=== PATIENT | male | born 1985 | race Hispanic/Latino ===

== ENCOUNTER 2019-09-03 05:12 | Emergency (ER) | payer OTHER | END 2019-09-03 05:40 | LOC: EDH 05:12 | DX: R79.89 Other specified abnormal findings of blood chemistry (principal) | CPT/HCPCS: 36415 ==

== ENCOUNTER 2022-11-23 17:08 | Emergency (ER) | payer OTHER ==
[~2022-11-23] VITALS: Ht 162.6 cm; Wt 73.5 kg
[2022-11-23 19:55] VITALS: BP 131/80
[2022-11-23] MEDS ORDERED: KETOROLAC 60 MG VIAL (30MG/ML) IM ONE ×2 (20:23→20:30)
[2022-11-23] MEDS ORDERED: CEPH500C2 PO (20:39)
[2022-11-23] MEDS ORDERED: IBUP-2070 PO (20:39)
== END 2022-11-23 20:47 | disposition home or self-care (01) ==
LOC: EDH 17:08
DX: S61.411A Laceration without foreign body of right hand, initial encounter (principal); F17.210 Nicotine dependence, cigarettes, uncomplicated; W25.XXXA Contact with sharp glass, initial encounter; Y93.89 Activity, other specified; Y92.89 Other specified places as the place of occurrence of the external cause; Y99.0 Civilian activity done for income or pay
CPT/HCPCS: 99283; 73130; 96372; J1885

== ENCOUNTER 2024-08-09 21:57 | Emergency (ER) | payer BC, OTHER ==
[~2024-08-09] VITALS: Ht 162.6 cm; Wt 74.8 kg
[~2024-08-09 21:57] MED LIST: CEPH500C2 PO; IBUP-2070 PO
[2024-08-09 22:23] LABS: BASOPHILS # (AUTO) 0.03 K/uL (0.00-0.20); BASOPHILS % (AUTO) 0.4 % (0.0-5.0); EOSINOPHILS # (AUTO) 0.36 K/uL (0.00-0.70); EOSINOPHILS % (AUTO) 4.7 % (0.0-8.0); HEMATOCRIT 41.3 % (42-54); IMMATURE GRANULOCYTE ABSOLUTE 0.02 K/uL (0-1); LYMPHOCYTES # (AUTO) 1.9 K/uL (1.0-4.8); MEAN CORPUSCULAR HEMOGLOBIN 31.4 pg (27.0-33.0); MEAN CORPUSCULAR HGB CONC 33.9 g/dL (32.0-36.0); MEAN CORPUSCULAR VOLUME 92.6 fL (79-99); MONOCYTES # (AUTO) 0.7 K/uL (0.1-1.0); MONOCYTES % (AUTO) 9.6 % (3.0-13.0); NEUTROPHILS # (AUTO) 4.7 K/uL (1.8-7.7); PLATELET COUNT (AUTO) 318 K/uL (130-400); RED BLOOD CELL COUNT(AUTO) 4.46 MIL/uL (4.50-6.20); WHITE BLOOD COUNT (AUTO) 7.7 K/uL (4.8-10.8)
[2024-08-09 22:28] LABS: APPEARANCE,URINE CLEAR (CLEAR); BILIRUBIN,URINE NEGATIVE (NEGATIVE); COLOR,URINE LIGHT-YELLOW (YELLOW); GLUCOSE, URINE (UA) NEGATIVE (NEGATIVE); KETONES,URINE NEGATIVE (NEGATIVE); LEUKOCYTE ESTERASE ,URINE NEGATIVE Leu/uL (NEGATIVE); NITRATE,URINE NEGATIVE (NEGATIVE); OCCULT BLOOD,URINE NEGATIVE (NEGATIVE); PH,URINE 6.5 (5.0-8.0); PROTEIN,URINE 10 mg/dL (NEGATIVE)
[2024-08-09 22:29] LABS: CREATININE 1.1 mg/dL (0.5-1.3); POTASSIUM 3.3 mmol/L (3.5-5.1)
[2024-08-09] MEDS: PANTOPrazole 40 MG/VIAL IVP ONE (22:31)
--- NOTE | 2024-08-09 22:31 | ERN ---
ED Note History of Present Illness Stated Complaint: RUQ ABD PAIN Chief Complaint: Abdominal Pain Time Seen by MD: 22:02 Dictation: Patient is a 38-year-old male who presented to the ER complaining of right upper quadrant abdominal discomfort and heartburn, states that pain started yesterday and is associated with meals, patient also mentioned that he drinks alcohol every day, states that today the pain got worse after eating some spicy food. Otherwise patient denies fever, chills, diarrhea. Allergies: Coded Allergies: No Known Drug Allergies (Unverified Allergy, Unknown, 09/03/19) Home Meds Active Scripts Pantoprazole Sodium (Pantoprazole Sodium) 40 Mg Tablet.dr, 40 MG PO BID, #30 TAB Prov:NAKUL RODRIGUES MD 08/09/24 Ibuprofen (Ibuprofen) 600 Mg Tablet, 600 MG PO Q6H PRN for PAIN, #15 TAB Prov:JOSE MARTIN AGUILAR 11/23/22 Cephalexin (Cephalexin) 500 Mg Capsule, 500 MG PO TID for 10 Days, #30 CAP Prov:JOSE MARTIN AGUILAR 11/23/22 Past Medical History Past Medical History: Asthma, Other Additional Past Medical Hx: H. PYLORI Surgical History: None Review of System Dictation NEGATIVE EXCEPT PER HPI Constitutional: Negative for fever,chills, and weight loss Eyes: Negative for injury, pain,redness, and discharge ENT: Negative for injury,pain or swelling Cardiovascular: denies chest pain, palpitations, and edema Respiratory: Negative for shortness of breath, cough, and wheezing, Abdomen/GI: Abdominal pain, heartburn Back: Negative for injury and pain : Negative for injury, bleeding and discharge MS/Extremity: Negative for injury and deformity Skin: Negative for rash, and discoloration Neuro: Negative for headache, weakness, numbness, tingling, and seizure Psych: Negative for suicide ideation, homicidal ideation, and hallucinations Initial Vital Sign VS Vital Signs Date Time Temp Pulse Resp B/P (MAP) Pulse Ox O2 Delivery O2 Flow Rate FiO2 08/09/24 21:58 98.8 74 18 167/108 99 Room Air 0 08/09/24 22:00 21 Physical Exam Dictation General: awake, alert, NAD Head/Face: Normocephalic, atraumatic Eyes: PERRL, EOMI, vision at baseline ENT: oral cavity clear, TMs clear, no signs of infection Neck: Trachea midline, supple, no nuchal rigidity Cardiovascular: RRR, normal S1/S2, No MRGs, no JVD Respiratory: CTAB, no respiratory distress, No rales or wheezes Abdomen: Soft , right upper quadrant tenderness Skin: Warm, dry, normal turgor, no rash MS/Extremity: Pulses equal, no cyanosis, neurovascular intact, FROM Neuro: COAx4, GCS 15, strength 5/5, CN 2-12 intact, normal cerebellar exam, nor mal gait, Psych: Normal behavior, mood, and affect normal Results (Laboratory/Radiology) Laboratory/Radiology Laboratory Tests Test 08/09/24 22:02 08/09/24 22:14 Urine Color LIGHT-YELLOW (YELLOW) Urine Appearance CLEAR (CLEAR) Urine pH 6.5 (5.0-8.0) Urine Specific [place] 1.029 (1.001-1.031) Urine Protein 10 mg/dL (NEGATIVE) H Urine Glucose (UA) NEGATIVE mg/dL (NEGATIVE) Urine Ketones NEGATIVE mg/dL (NEGATIVE) Urine Occult Blood NEGATIVE (NEGATIVE) Urine Nitrate NEGATIVE (NEGATIVE) Urine Bilirubin NEGATIVE mg/dL (NEGATIVE) Urine Urobilinogen 4.0 mg/dL (0.2-1.0) H Urine Leukocyte Esterase NEGATIVE Maryam/uL Urine RBC 2-5 /HPF (0-1) H Urine WBC None /HPF (0-1) Urine Bacteria None /HPF (None Seen) White Blood Count 7.7 K/uL (4.8-10.8) Red Blood Count 4.46 MIL/uL (4.50-6.20) L Hemoglobin 14.0 g/dL (14.0-18.0) Hematocrit 41.3 % (42-54) L Mean Corpuscular Volume 92.6 fL (79-99) Mean Corpuscular Hemoglobin 31.4 pg (27.0-33.0) Mean Corpuscular Hemoglobin Concent 33.9 g/dL (32.0-36.0) Red Cell Distribution Width 14.0 % (11.0-15.5) Platelet Count 318 K/uL (130-400) Mean Platelet Volume 9.5 fL (7.5-10.5) Immature Granulocyte % (Auto) 0.3 % (0-1) Neutrophils (%) (Auto) 60.0 % (40.0-77.0) Lymphocytes (%) (Auto) 25.0 % (21.0-51.0) Monocytes (%) (Auto) 9.6 % (3.0-13.0) Eosinophils (%) (Auto) 4.7 % (0.0-8.0) Basophils (%) (Auto) 0.4 % (0.0-5.0) Neutrophils # (Auto) 4.7 K/uL (1.8-7.7) Lymphocytes # (Auto) 1.9 K/uL (1.0-4.8) Monocytes # (Auto) 0.7 K/uL (0.1-1.0) Eosinophils # (Auto) 0.36 K/uL (0.00-0.70) Basophils # (Auto) 0.03 K/uL (0.00-0.20) Absolute Immature Granulocyte (auto 0.02 K/uL (0-1) Nucleated Red Blood Cells 0.0 % (0.0-0.19) Sodium Level 139 mmol/L (136-145) Potassium Level 3.3 mmol/L (3.5-5.1) L Chloride Level 102 mmol/L (101-111) Carbon Dioxide Level 32 mmol/L (21-32) Blood Urea Nitrogen 18 mg/dL (7-18) Creatinine 1.1 mg/dL (0.5-1.3) Glomerular Filtration Rate Calc 88 mL/min (>90) Random Glucose 102 mg/dL (70-105) Total Calcium 8.7 mg/dL (8.5-10.1) Total Bilirubin 1.1 mg/dL (0.2-1.0) H Aspartate Amino Transf (AST/SGOT) 30 U/L (10-37) Alanine Aminotransferase (ALT/SGPT) 53 U/L (12-78) Alkaline Phosphatase 81 U/L (50-136) Total Protein 7.6 g/dL (6.0-8.3) Albumin 3.8 g/dL (3.5-5.0) Amylase Level 63 U/L (25-115) Lipase 27 U/L (16-77) ED Course ED Course Orders Procedure Category Date Status Time Vital Signs Per CPOE 08/09/24 Transmitted Routine 22:02 Saline Lock Iv CPOE 08/09/24 Transmitted 22:02 Cbc With Differential LAB 08/09/24 Complete 22:02 Comprehensive LAB 08/09/24 Complete Metabolic Panel 22:02 Lipase LAB 08/09/24 Complete 22:02 Amylase LAB 08/09/24 Complete 22:02 Urinalysis Profile LAB 08/09/24 Complete 22:02 Us Abdominal Ruq\Ltd US 08/09/24 Taken 22:23 Pantoprazole 40mg Inj PHA 08/09/24 Complete (Protonix 40mg Inj 22:30 Mag/Alum/Simeth 30ml PHA 08/09/24 Complete (Maalox Plus 30ml) 22:30 Current Medications Medications (Trade) Dose Ordered Sig/Vadim Route PRN Reason Start Time Stop Time Status Last Admin Dose Admin Al Hydroxide/Mg Hydroxide (MAALox PLUS 30ML) 30 ml ONCE ONCE PO 08/09/24 22:30 08/09/24 22:31 DC 08/09/24 22:54 Pantoprazole Sodium (PROTonix 40MG INJ) 40 mg ONCE ONCE IVP 08/09/24 22:30 08/09/24 22:31 DC 08/09/24 22:31 Vital Signs Date Time Temp Pulse Resp B/P (MAP) Pulse Ox O2 Delivery O2 Flow Rate FiO2 08/09/24 23:00 98.8 81 18 152/70 99 Room Air* 0 21 08/09/24 22:00 81 18 138/91 97 Room Air* 0 21 08/09/24 21:58 98.8 74 18 167/108 99 Room Air 0 Medical Decision Making MDM 38-year-old male with abdominal pain, pain more localized in the right upper quadrant and heartburn Patient also drinks alcohol every day. Abdominal pain related to spicy food Gastritis Peptic ulcer Cholecystitis Ordered CMP, lipase, CBC Right upper quadrant ultrasound done preliminary results negative for cholecystitis. Ordered IV Protonix Ordered Maalox Laboratory reviewed, CMP within normal limits, liver enzymes within normal limits. Pending final result of abdominal ultrasound, patient agreed to follow up tomorrow at this facility for the results. Patient is feeling better, abdominal pain resolved. Likely his symptoms due to severe gastritis in the setting of been drink alcohol almost daily. He was advised to quit alcohol, decreasing intake of spicy foods and greasy foods. DX & DISP Disposition: Discharge Departure Impression: Primary Impression: Gastritis Additional Impressions: Peptic gastritis, Peptic reflux disease, Peptic ulcer, Abdominal pain Condition: Stable Scripts Pantoprazole Sodium (Pantoprazole Sodium) 40 Mg Tablet. 40 MG PO BID, #30 TAB Prov: NAKUL RODRIGUES MD 08/09/24 Additional Instructions: RETURN TO ER FOR ANY ACUTE OR WORSENING SYMPTOMS. FOLLOW-UP IN 1-2 DAYS WITH PRIMARY PROVIDER FOR RECHECK OF TODAY'S SYMPTOMS. Referrals: SELF,REFERRAL (PCP) NAKUL RODRIGUES MD Aug 09, 2024 22:31
[2024-08-09 22:32] LABS: ADD UA MICROSCOPIC YES
[2024-08-09 22:33] LABS: ALBUMIN 3.8 g/dL (3.5-5.0); BILIRUBIN,TOTAL 1.1 mg/dL (0.2-1.0); TOTAL PROTEIN, SERUM 7.6 g/dL (6.0-8.3)
[2024-08-09 22:38] LABS: MUCUS,URINE RARE LPF (None Seen)
[2024-08-09] MEDS: MAG/ALUM/SIMETH 30 ML UDCUP PO ONE (22:54)
[2024-08-09] MEDS ORDERED: PANT40TA54 PO (23:35)
[2024-08-10 00:15] VITALS: BP 151/72; PULSE 81; RESP 18; TEMP 98.8; O2SAT 99
--- NOTE | 2024-08-10 01:41 | HMCIMG ---
US ABDOMINAL RUQ\E\LTD HISTORY: Cholecystitis COMPARISON: None TECHNIQUE: Right upper quadrant abdominal ultrasound study was performed. FINDINGS: Liver measures 15.7 cm. Pancreas is not well seen due to overlying bowel gas. Fatty changes of the liver are noted. Liver is echogenic consistent with liver parenchymal disease. No gallstone is seen. Common duct measures 4 mm. No evidence of gallbladder wall thickening is seen. Right kidney measures 8.9 x 4.7 x 5.1 cm. No hydronephrosis is seen of the right kidney. IMPRESSION: 1. No gallstones or ductal dilatation is seen. 2. No hydronephrosis is seen.
== END 2024-08-10 00:16 | disposition home or self-care (01) ==
LOC: EDH 21:57
DX: K29.70 Gastritis, unspecified, without bleeding (principal); K21.9 Gastro-esophageal reflux disease without esophagitis; R10.11 Right upper quadrant pain; J45.909 Unspecified asthma, uncomplicated
CPT/HCPCS: 99284; 96374; 76705; 82150; 80053; 83690; 85025; 81001; 36415; J2470

== ENCOUNTER 2024-12-31 22:03 | Emergency (ER) | payer BC, OTHER ==
[~2024-12-31] VITALS: Ht 162.6 cm; Wt 74.8 kg
[~2024-12-31 22:03] MED LIST changes: +PANT40TA54 PO
--- NOTE | 2024-12-31 22:13 | NUR ---
PT CARE ASSUMED AT THIS TIME
[2024-12-31] MEDS: ketOROlac 30MG VIAL (30MG/ML) IM ONE (22:44)
[2024-12-31] MEDS: HYDROcodone/APAP 5/325 1 TAB TABLET PO ONE (22:46)
[2024-12-31] MEDS ORDERED: KETO10TA2 PO (22:56)
--- NOTE | 2024-12-31 22:58 | ERN ---
General Chief Complaint: FOOT INJURY/PAIN Stated Complaint: LEFT FOOT PAIN Time Seen by MD: 22:06 Time Seen by Midlevel: 22:06 Source: patient History of Present Illness Initial Comments The patient is a 39-year-old male with no significant past medical history presenting to the emergency department for evaluation of pain to his left foot. The patient states he works long hours and stands for a proximally 10-12 hours every day. He has been doing this for the last 12 years. He states this morning he felt fine but throughout the day he started having pain to the plantar aspect of the left lateral foot. Denies any direct injury. Patient was here requesting pain control. Denies any other symptoms at this time. Allergies: Coded Allergies: No Known Drug Allergies (Unverified Allergy, Unknown, 09/03/19) Home Meds Active Scripts Pantoprazole Sodium (Pantoprazole Sodium) 40 Mg Tablet.dr, 40 MG PO BID, #30 TAB Prov:NAKUL RODRIGUES MD 08/09/24 Ibuprofen (Ibuprofen) 600 Mg Tablet, 600 MG PO Q6H PRN for PAIN, #15 TAB Prov:JOSE MARTIN AGUILAR 11/23/22 Cephalexin (Cephalexin) 500 Mg Capsule, 500 MG PO TID for 10 Days, #30 CAP Prov:JOSE MARTIN AGUILAR 11/23/22 Past Medical History Past Medical History: Asthma, Other Medical History Other: H. PYLORI Past Surgical History: None ROS Dictation CONSTITUTIONAL: Negative except for HPI HEAD/FACE: Negative except for HPI EENT: Negative except for HPI RESPIRATORY: Negative except for HPI GASTROINTESTINAL/ABDOMINAL: Negative except for HPI GENITOURINARY: Negative except for HPI MUSCULOSKELETAL: Negative except for HPI INTEGUMENTARY: Negative except for HPI NEUROLOGICAL/PSYCH: Negative except for HPI HEMATOLOGIC/LYMPHATIC: Negative except for HPI All Systems Negative, Except as noted above. 13 point review of systems assessed and all negative except for above. Physical Exam Physical Exam Dictation Vital Signs reviewed General Appearance: Alert, oriented x 3, no acute distress, well developed, nourished. Head and Face: non-traumatic. Eyes: PERRL, pink conjunctivas, eyelid no trauma, anterior chamber with arcus senilis. Ears: Pinnas intact and no signs of trauma or erythema ear canals clear and no discharge TM no erythema Nose: No discharge, no bleeding. Oropharynx: Mouth normal, tongue pink, pharynx clear,no erythema, tonsils no exudates, no abscesses noted, mucous membrane moist Neck: Supple, non-tender, no thyromegaly, no masses, no JVD, no bruits Breast:Deferred Chest:No tenderness, no crepitus, no paradoxical movement, no retractions Lungs:Clear, well-ventilated, symmetric, no rales, no wheezing, no rhonchi, no stridor, good breath sounds bilaterally Heart: Regular rate, regular rhythm, no murmur, no gallops Vascular: no peripheral edema, Abdomen: Soft, positive bowel sounds, nondistended, no guarding, nontender, no rebound, no masses no hepatomegaly, no splenomegaly, no Phillips's sign, no hernias. Rectal: Deferred Genital: Deferred Neurological: Normal speech, motor function intact, sensory function intact Musculoskeletal: Neck nontender, full range of motion, back nontender, full range of motion, Extremities: nontender, full range of motion Skin: Color pink, dry, no turgor, no rash, no lacerations, no abrasions, no contusions. Lymphatic: Deferred MDM MDM: The patient is a 39-year-old male with no significant past medical history presenting to the emergency department for evaluation of pain to his left foot. The patient states he works long hours and stands for a proximally 10-12 hours every day. He has been doing this for the last 12 years. He states this morning he felt fine but throughout the day he started having pain to the plantar aspect of the left lateral foot. Denies any direct injury. Patient was here requesting pain control. Denies any other symptoms at this time. On physical examination patient is in no acute distress. He was ambulatory without assistance and with a normal gait. His foot examination is unremarkable. There are no obvious signs of external trauma. No lesions noted. There was no tenderness to palpation. Patient states the pain only occurs when he walks. Pain appears to be musculoskeletal in nature. The patient was given pain control in the ER and will be discharged home with pain control. Patient refused x-ray as he believes he does not have a fracture. Denies any other concerns at this time. We will discharged home Differential diagnosis: Muscle strain, plantar fasciitis, fracture There are no social concerns with this patient. Prescription drug management Prescriptions will include: Ketorolac Medical management and examination interpretation discussions were had by me with other qualified healthcare professionals as indicated for the patient's care. ED Course Orders Procedure Category Date Status Time Ketorolac PHA 12/31/24 In Process Tromethamine 30mg/Ml 23:00 Hydrocodone/Apap PHA 12/31/24 In Process 5/325 ([place] 5/325mg) 23:00 Current Medications Medications (Trade) Dose Ordered Sig/Vadim Route PRN Reason Start Time Stop Time Status Last Admin Dose Admin Acetaminophen/ Hydrocodone Bitart (NORco 5/325MG) 1 tab ONCE ONCE PO 12/31/24 23:00 12/31/24 23:01 Ketorolac Tromethamine (toRADol) 30 mg ONCE ONCE IM 12/31/24 23:00 12/31/24 23:01 Vital Signs Date Time Temp Pulse Resp B/P (MAP) Pulse Ox O2 Delivery O2 Flow Rate FiO2 12/31/24 22:13 98.1 82 17 155/104 99 Room Air* 0 21 12/31/24 22:04 98.8 65 16 165/98 99 Room Air DX & DISP Disposition: Discharge Departure Impression: Primary Impression: Left foot pain Condition: Stable Scripts Ketorolac Tromethamine (Ketorolac Tromethamine) 10 Mg Tablet 1 TAB PO TID for pain for 5 Days, #15 TAB 0 Refills Prov: AURELIO ANAND 12/31/24 Referrals: SELF,REFERRAL (PCP) Time of Disposition: 22:56 I have reviewed the case, and I agree with, Diagnosis and Plan I performed the substantive portion of the visit. I have reviewed and personally made and approve the management plan that is documented in the note by myself or the KYALEY. I acknowledge for responsibility for the patient's management plan. AURELIO ANAND December 31, 2024 22:58
[2024-12-31 23:15] VITALS: BP 154/98; PULSE 85; RESP 17; TEMP 98.1; O2SAT 99
== END 2024-12-31 23:16 | disposition home or self-care (01) ==
LOC: EDH 22:03
DX: M79.672 Pain in left foot (principal); J45.909 Unspecified asthma, uncomplicated; Z79.899 Other long term (current) drug therapy
CPT/HCPCS: 99283; 96372; J1885